=== PATIENT | female | born 1985 | race American Indian/Alaskan Native ===

== ENCOUNTER 2021-04-20 12:57 | Outpatient (CLI) | payer OTHER | END 2021-04-20 13:35 | disposition home or self-care (01) | LOC: NST 12:57 | PROVIDERS: ATTEND Obstetrics & Gynecology | DX: Z34.83 Encounter for supervision of other normal pregnancy, third trimester (principal) ==

== ENCOUNTER 2021-04-21 00:25 | Outpatient (CLI) | payer OTHER | END 2021-04-21 01:47 | disposition home or self-care (01) | LOC: NST 00:25 | PROVIDERS: ATTEND Obstetrics & Gynecology | DX: Z34.83 Encounter for supervision of other normal pregnancy, third trimester (principal) ==

== ENCOUNTER 2025-02-01 16:44 | Emergency (ER) | payer OTHER ==
[~2025-02-01] VITALS: Ht 162.6 cm; Wt 68.0 kg
[2025-02-01 16:51] VITALS: BP 154/89; O2SAT 99
[2025-02-01] MEDS ORDERED: FAMOTIDINE/PF 20 MG in 0.9 % SODIUM CHLORIDE 8 ML IV PUSH ONE (17:15)
[2025-02-01] MEDS ORDERED: 0.9 % SODIUM CHLORIDE 1,000 ML IV SCH (17:15)
[2025-02-01] MEDS ORDERED: ACETAMINOPHEN 500 MG GEL..CAP PO ONE ×2 (17:15→17:39)
[2025-02-01] MEDS ORDERED: FAMOTIDINE/PF 20 MG/2 ML VIAL ONE (17:39)
[2025-02-01 18:00] LABS: BASO % 0.2 % (0.1-1.2); EOS # 0.06 (0.04-0.54); EOS % 0.7 % (0.7-7.0); LYMPH # 0.94 (1.18-3.74); LYMPH % 10.3 % (19.3-53.1); MEAN PLATELET VOLUME 13.20 fl (9.4-12.4); MONO # 0.63 (0.24-0.82); MONO % 6.9 % (4.7-12.5); NEUT # 7.49 (1.56-6.13); NEUT % 81.7 % (34.0-71.1); RED CELL DISTRIBUTION WIDTH 13.2 % (11.6-14.4)
[2025-02-01 18:29] LABS: INR 0.97
[2025-02-01 19:08] LABS: ALT/SGPT 13.0 U/L (12-78); AST/SGOT 19.0 U/L (15-37); BILIRUBIN TOTAL 0.24 mg/dL (0.3-1.2); BUN CREA RATIO 18.0 (7.0-25.0); CREATININE SERUM 0.65 mg/dL (0.55-1.02); GFR 102.56; GLOBULINA 3.9 G/DL (2.4-3.5); GLUCOSE FASTING 103.0 mg/dL (65-100); OSMOLALITY SERUM 281.0 MOSM/KG (275-295)
[2025-02-01 19:18] LABS: URINE APPEARANCE Clear; URINE BILIRRUBIN Negative (NEGATIVE); URINE BLOOD Negative; URINE COLOR Yellow; URINE GLUCOSE Negative (NEGATIVE); URINE KETONE Negative (NEGATIVE); URINE LEUKOCYTE Trace; URINE NITRATE Negative; URINE PROTEIN Negative (NEGATIVE); URINE UROBILINOGEN 0.2 E.U./dl
[2025-02-01 19:26] LABS: URINE BACTERIA 275.5 uL (0.0-1933); URINE EPITHELIAL CELLS 20.2 uL (0.0-38.8); URINE RBC 3.3 uL (0.0-20.8); URINE WBC 14.2 uL (0.0-23.2)
[2025-02-01 19:35] LABS: URINE CAST 0.00 uL (0.0-1.40)
[2025-02-01] MEDS ORDERED: PEPCID AC20 MG PO (20:08)
[2025-02-01] MEDS ORDERED: AMOX-CLAV 875-1 EACH PO (20:08)
[2025-02-01] MEDS ORDERED: CEFTRIAXONE SODIUM 1,000 MG VIAL ONE (20:09)
[2025-02-01] MEDS ORDERED: CEFTRIAXONE SODIUM 1,000 MG in DEXTROSE 5 % IN WATER 100 ML IV ONE (20:15)
== END 2025-02-01 20:35 | disposition home or self-care (01) ==
LOC: ER 16:45
PROVIDERS: General Practice
DX: L02.214 Cutaneous abscess of groin (principal); Z88.2 Allergy status to sulfonamides; Z88.6 Allergy status to analgesic agent